=== PATIENT | male | born 1960 | race Caucasian/White ===

== ENCOUNTER 2023-11-23 21:20 | Emergency (ER) | payer OTHER ==
[~2023-11-23] VITALS: Ht 165.1 cm; Wt 77.3 kg
[2023-11-23 21:49] LABS: BASOPHILS % (AUTO) 0.7 % (0.0-2.0); EOSINOPHILS % (AUTO) 1.1 % (1.0-6.0); HEMATOCRIT 46.2 % (41-53); HEMOGLOBIN 15.7 g/dL (13.5-17.5); LYMPHOCYTES # (AUTO) 2.8 K/uL (1.0-4.8); LYMPHOCYTES % (AUTO) 42.4 % (22.0-44.0); MEAN CORPUSCULAR HEMOGLOBIN 31.1 pg (26.0-34.0); MEAN CORPUSCULAR VOLUME 91 fL (80-100); MONOCYTES # (AUTO) 0.6 K/uL (0.1-1.0); MONOCYTES % (AUTO) 8.7 % (2.0-9.0); NEUTROPHILS # (AUTO) 3.2 K/uL (1.8-7.7); NEUTROPHILS % (AUTO) 47.1 % (40.0-70.0); PLATELET COUNT (AUTO) 182 K/uL (150-450); RED BLOOD CELL COUNT(AUTO) 5.06 MIL/uL (4.50-5.90); RED CELL DISTRIBUTION WIDTH 12.8 % (11.5-14.5); WHITE BLOOD COUNT (AUTO) 6.7 K/uL (4.5-11.0)
[2023-11-23 22:01] LABS: ANION GAP 17 mmol/L (8-16); CARBON DIOXIDE 22 mmol/L (22-29); CHLORIDE 100 mmol/L (98-107); CREATININE 0.94 mg/dL (0.60-1.30); GLOMERULAR FILTR. RATE CALC > 60 mL/min (>60); GLUCOSE,RANDOM 118 mg/dL (70-110); POTASSIUM 3.3 mmol/L (3.5-5.1); SODIUM SERUM 139 mmol/L (136-145); UREA NITROGEN, BLOOD 17 mg/dL (7-18)
[2023-11-23 22:03] VITALS: BP 184/97; PULSE 84; RESP 17; TEMP 98; O2SAT 94
[2023-11-23 22:05] LABS: TROPONIN I-HIGH SENSITIVITY 7 ng/L (<76)
[2023-11-23 22:06] LABS: ALANINE AMINOTRANSFERASE 73 U/L (12-78); ALBUMIN 4.2 g/dL (3.4-5.0); ALKALINE PHOSPHATASE 69 U/L (46-116); ASPARTATE AMINOTRANSFERASE 22 U/L (15-37); BILIRUBIN,TOTAL 0.5 mg/dL (0.1-1.0); TOTAL PROTEIN, SERUM 7.5 g/dL (6.4-8.2)
[2023-11-23] MEDS: SODIUM CHLORIDE 0.9% 1,000 ML IV ONE (22:23)
[2023-11-23] MEDS: ONDANSETRON HCL 4 MG/2 ML VIAL IVP ONE (22:24)
[2023-11-23] MEDS: MAG HYDROX/ALUMINUM HYD/SIMETH ES 30 ML SUSPENSION UDCUP PO ONE (22:45)
[2023-11-23 23:20] LABS: COVID AG,FIA SOURCE NASAL SWAB
[2023-11-23 23:29] LABS: SARS-COV2 (COVID) ANTIGEN,FIA Negative (Negative)
[2023-11-23] MEDS: POTASSIUM CHLORIDE 20 MEQ ER TABLET PO ONE (23:42)
== END 2023-11-24 00:38 | disposition home or self-care (01) ==
LOC: EMS 21:31
DX: K52.9 Noninfective gastroenteritis and colitis, unspecified (principal); K59.00 Constipation, unspecified; R11.2 Nausea with vomiting, unspecified; E87.6 Hypokalemia; E11.9 Type 2 diabetes mellitus without complications; I10 Essential (primary) hypertension; Z88.0 Allergy status to penicillin; Z88.2 Allergy status to sulfonamides; Z20.822 Contact with and (suspected) exposure to COVID-19
CPT/HCPCS: 99285; 96374; 71045; 96361; 87426; 80048; 80076; 83690; 83735; 84484; 85025; 36415; 74019; 93005; J2405; J7030